=== PATIENT | female | born 1985 | race Caucasian/White ===

== ENCOUNTER 2018-04-26 12:36 | Emergency (ER) | payer MEDICAID ==
[~2018-04-26] VITALS: Ht 165.1 cm; Wt 66.2 kg
[~2018-04-26 12:36] MED LIST: COLACE100 MG PO; FERROUS SULFAT325 M2 PO; NORCO1 TA2 PO; VITAMIN C100 M1 PO
[2018-04-26 12:38] VITALS: BP 114/66; Ht 165.1 cm; Wt 66.2 kg
== END 2018-04-26 13:58 | disposition home or self-care (01) ==
LOC: ED 12:36
DX: L60.0 Ingrowing nail (principal); Z98.890 Other specified postprocedural states
CPT/HCPCS: J2001

== ENCOUNTER 2019-01-01 17:56 | Emergency (ER) | payer MEDICAID ==
[~2019-01-01] VITALS: Ht 157.5 cm; Wt 68.0 kg
[2019-01-01 17:57] VITALS: Ht 157.5 cm; Wt 68.0 kg
[2019-01-01 19:01] VITALS: BP 122/75
== END 2019-01-01 19:01 | disposition home or self-care (01) ==
LOC: ED 17:56
DX: N39.0 Urinary tract infection, site not specified (principal)
CPT/HCPCS: 87491; 87591

== ENCOUNTER 2019-03-25 16:30 | Emergency (ER) | payer MEDICAID ==
[~2019-03-25] VITALS: Ht 157.5 cm; Wt 67.1 kg
[2019-03-25 16:37] VITALS: Ht 157.5 cm; Wt 67.1 kg
[2019-03-25 19:01] LABS: BASOPHIL % 0.4 % (0-2); PLATELET COUNT 331 x10^3mcL (130-400)
[2019-03-25 19:02] LABS: RED CELL DISTRIBUTION WIDTH 15.1 % (11.5-14.5)
[2019-03-25 19:07] LABS: UA SPECIFIC GRAVITY <=1.005 (1.005-1.035); microscopic required? YES; urine erythrocyte 1+ (NEGATIVE)
[2019-03-25 19:16] LABS: CALCIUM 7.6 mg/dL (8.5-10.1); CARBON DIOXIDE 25.5 mmol/L (21-32); CHLORIDE SERUM 107 mmol/L (98-107); CREATININE SERUM 0.6 mg/dL (0.6-1.0); GFR1 > 60 mL/min; GLUCOSE SERUM 86 mg/dL (74-106); POTASSIUM SERUM 3.6 mmol/L (3.5-5.1); SODIUM SERUM 142 mmol/L (136-145)
[2019-03-25 19:19] VITALS: BP 103/53
[2019-03-25 19:21] LABS: ALBUMIN 3.6 g/dL (3.4-5.0); ALKALINE PHOSPHATASE 73 U/L (46-116); ALT/SGPT 21 U/L (14-59); AST/SGOT 13 U/L (15-37); BILIRUBIN TOTAL 0.3 mg/dL (0.20-1.00); TOTAL PROTEIN, SERUM 7.2 g/dL (6.4-8.2); TRIGLYCERIDES 89 mg/dL (<150)
[2019-03-25 19:23] LABS: CHOLESTEROL 110 mg/dL (<200); CHOLESTEROL/HDL RATIO 3.5; HDL CHOLESTEROL 31 mg/dL (40-60)
== END 2019-03-25 19:39 | disposition home or self-care (01) ==
LOC: ED 16:30
PROVIDERS: Specialist
DX: G89.29 Other chronic pain (principal); R10.9 Unspecified abdominal pain; R31.29 Other microscopic hematuria; R35.0 Frequency of micturition; R11.0 Nausea
CPT/HCPCS: J1885; J2405; J3010; J7030; Q0092

== ENCOUNTER 2019-04-10 23:53 | Emergency (ER) | payer MEDICAID ==
[~2019-04-10] VITALS: Ht 162.6 cm; Wt 66.7 kg
[2019-04-10 23:58] VITALS: Ht 162.6 cm; Wt 66.7 kg
[2019-04-11 01:56] LABS: BASOPHIL % 0.4 % (0-2); PLATELET COUNT 355 x10^3mcL (130-400); RED CELL DISTRIBUTION WIDTH 15.4 % (11.5-14.5)
[2019-04-11 02:11] LABS: CALCIUM 8.3 mg/dL (8.5-10.1); CARBON DIOXIDE 28.3 mmol/L (21-32); CHLORIDE SERUM 104 mmol/L (98-107); CREATININE SERUM 0.5 mg/dL (0.6-1.0); GFR1 > 60 mL/min; GLUCOSE SERUM 97 mg/dL (74-106); POTASSIUM SERUM 4.1 mmol/L (3.5-5.1); SODIUM SERUM 141 mmol/L (136-145)
[2019-04-11 02:15] LABS: ALBUMIN 4.1 g/dL (3.4-5.0); ALKALINE PHOSPHATASE 88 U/L (46-116); AST/SGOT 16 U/L (15-37); BILIRUBIN TOTAL 0.22 mg/dL (0.20-1.00); LIPASE 111 IU/L (73-393); TOTAL PROTEIN, SERUM 7.8 g/dL (6.4-8.2)
[2019-04-11 02:28] LABS: ALT/SGPT 22 U/L (14-59)
[2019-04-11 02:54] LABS: microscopic required? YES; urine erythrocyte 1+ (NEGATIVE)
[2019-04-11 03:55] VITALS: BP 107/59
== END 2019-04-11 03:55 | disposition home or self-care (01) ==
LOC: ED 23:53
PROVIDERS: Emergency Medicine
DX: R10.812 Left upper quadrant abdominal tenderness (principal); R68.83 Chills (without fever); R30.9 Painful micturition, unspecified; Z98.890 Other specified postprocedural states
CPT/HCPCS: J1885; J7030